=== PATIENT | male | born 1935 | race Two or more races ===

== ENCOUNTER 2022-08-09 03:32 | Inpatient (IN) | payer SELFPAY ==
[2022-08-09] MEDS ORDERED: Ondansetron PF 4 MG/2 ML Vial ONE (04:29)
[2022-08-09] MEDS ORDERED: Heparin 10,000 UNITS/ 10 ML VIAL ONE ×3 (04:30→06:01)
[2022-08-09] MEDS ORDERED: Metoprolol Tartrate 5 MG/5 ML VIAL ONE (04:30)
[2022-08-09 04:37] LABS: #Eosinphils 0.1 thou/uL (0.0-0.7); #Lymphocytes 0.7 thou/uL (1.20-3.40); #Monocytes 1.2 thou/uL (0.11-0.59); #Neutrophils 14.6 thou/uL (1.40-6.50); %Basophils 0.2 % (0.0-1.0); %Eosinophils 0.3 % (0.0-10.0); %Lymphocytes 3.9 % (21.0-51.0); %Monocytes 7.3 % (0.0-10.0); %Neutrophils 88.3 % (42.0-75.0); Hemoglobin 15.6 g/dL (14.0-18.0); Mean Corpuscular HGB CONC 33.7 g/dL (32.0-36.0); Mean Corpuscular Hemoglobin 31.7 pg (27.0-31.0); Mean Platelet Volume 7.5 fL (7.4-10.4); Platelet Count 227 10x3/uL (130-400); RBC Distribution Width 11.9 % (11.5-14.5); Red Blood Cell (RBC) Count 4.92 mill/uL (4.70-6.10); White Blood Cell (WBC) Count 16.6 10x3/uL (4.8-10.8)
[2022-08-09] MEDS ORDERED: Morphine 4 MG/ML VIAL ONE (04:38)
[2022-08-09] MEDS ORDERED: Nitroglycerin 50 MG/250 ML BOT 250 ML ONE (04:38)
[2022-08-09] MEDS ORDERED: Aspirin Chewable 81 MG TAB ONE (04:41)
[2022-08-09 05:02] LABS: ALT (SGPT) 12 U/L (8-55); AST (SGOT) 12 U/L (5-34); Albumin 4.4 g/dL (3.4-4.8); Alkaline Phosphatase 89 U/L (40-110); Anion Gap 14 mmol/L (10-20); BUN (Urea Nitrogen) 29 mg/dL (8.4-25.7); Bilirubin, Total 1.6 mg/dL (0.2-1.2); Calc. Creatinine Clearance 0 mL/min (70-130); Calcium 9.8 mg/dL (7.8-10.44); Carbon Dioxide 24 mmol/L (23-31); Chloride 98 mmol/L (98-107); Estimated GFR 37; Globulin 3.1 g/dL (2.4-3.5); Glucose 288 mg/dL (83-110); Lipase 21 U/L (8-78); Potassium 4.8 mmol/L (3.5-5.1); Protein, Total 7.5 g/dL (5.8-8.1); Sodium 131 mmol/L (136-145)
[2022-08-09] MEDS ORDERED: Lidocaine 1% (PF) 30 ML VIAL ONE (05:03)
[2022-08-09] MEDS ORDERED: Verapamil 5 MG/2 ML VIAL ONE (05:03)
[2022-08-09] MEDS ORDERED: Adenosine 6 MG/2 ML VIAL ONE (05:03)
[2022-08-09] MEDS ORDERED: Nitroglycerin 100MG/250ML BOT 250 ML ONE (05:03)
[2022-08-09 05:50] LABS: Cardiac Risk 5.4 (Less than 4.5)
[2022-08-09] MEDS ORDERED: Clopidogrel Bisulfate 300 MG TAB ONE ×2 (06:20)
[2022-08-09] MEDS ORDERED: Morphine 4 MG/ML VIAL SLOW IVP PRN (06:43)
[2022-08-09] MEDS ORDERED: Sodium Chloride 0.9% 1,000 ML IV SCH (06:45)
[2022-08-09] MEDS ORDERED: Colchicine 0.6 MG TAB PO SCH ×2 (07:00→09:30)
[2022-08-09] MEDS ORDERED: Iopamidol 370 76% 50 ML VIAL FS ONE (07:42)
[2022-08-09] MEDS ORDERED: Iopamidol 370 76% 100 ML VIAL ONE (07:42)
[2022-08-09 08:23] LABS: Troponin I Less than 0.010 ng/mL (< 0.028)
[2022-08-09] MEDS ORDERED: Dextrose 5% in Water 1,000 ML IV PRN (09:15)
[2022-08-09] MEDS ORDERED: HumaLOG 300 UNITS/3 ML VIAL SC PRN ×2 (09:15)
[2022-08-09] MEDS ORDERED: Dextrose 50% Abboject 50 ML SYRINGE IVP PRN (09:15)
[2022-08-09] MEDS ORDERED: Ondansetron PF 4 MG/2 ML Vial IVP PRN (09:23)
[2022-08-09] MEDS: Aspirin Chewable 81 MG TAB PO SCH (09:31)
[2022-08-09] MEDS: Carvedilol 3.125 MG TAB PO SCH ×2 (09:31→17:00)
[2022-08-09 13:04] LABS: Troponin I 0.018 ng/mL (< 0.028)
[2022-08-09] MEDS: Morphine 2 MG/ML VIAL SLOW IVP PRN (14:48)
[2022-08-09] MEDS ORDERED: Famotidine 20 MG TAB PO SCH (21:00)
[2022-08-09] MEDS ORDERED: Atorvastatin Calcium 40 MG TAB PO SCH (21:00)
[2022-08-09] MEDS ORDERED: Albuterol 2.5 MG/0.5 ML NEB ONE (21:33)
[2022-08-09] MEDS: Colchicine 0.6 MG TAB PO SCH (21:58)
[2022-08-10 02:31] LABS: #Lymphocytes 0.8 thou/uL (1.20-3.40); #Neutrophils 12.4 thou/uL (1.40-6.50); %Basophils 0.1 % (0.0-1.0); %Eosinophils 0.1 % (0.0-10.0); %Lymphocytes 5.8 % (21.0-51.0); %Monocytes 7.2 % (0.0-10.0); %Neutrophils 86.7 % (42.0-75.0); Hemoglobin 12.6 g/dL (14.0-18.0); Mean Corpuscular Hemoglobin 32.7 pg (27.0-31.0); Mean Corpuscular Volume 96.2 fl (78.0-98.0); Mean Platelet Volume 7.4 fL (7.4-10.4); Platelet Count 191 10x3/uL (130-400); RBC Distribution Width 12.2 % (11.5-14.5); Red Blood Cell (RBC) Count 3.84 mill/uL (4.70-6.10); White Blood Cell (WBC) Count 14.3 10x3/uL (4.8-10.8)
[2022-08-10 02:58] LABS: ALT (SGPT) 12 U/L (8-55); AST (SGOT) 10 U/L (5-34); Albumin 3.2 g/dL (3.4-4.8); Alkaline Phosphatase 58 U/L (40-110); Anion Gap 10 mmol/L (10-20); BUN (Urea Nitrogen) 29 mg/dL (8.4-25.7); Bilirubin, Total 1.8 mg/dL (0.2-1.2); Calc. Creatinine Clearance 34 mL/min (70-130); Calcium 8.5 mg/dL (7.8-10.44); Carbon Dioxide 25 mmol/L (23-31); Chloride 106 mmol/L (98-107); Estimated GFR 41; Globulin 2.9 g/dL (2.4-3.5); Glucose 215 mg/dL (83-110); Potassium 4.7 mmol/L (3.5-5.1); Protein, Total 6.1 g/dL (5.8-8.1); Sodium 136 mmol/L (136-145)
[2022-08-10] MEDS: Morphine 2 MG/ML VIAL SLOW IVP PRN (05:51)
[2022-08-10] MEDS ORDERED: Levothyroxine Sodium 75 MCG TAB PO SCH (06:00)
[2022-08-10 06:28] VITALS: BMI 27.8
[2022-08-10] MEDS: Aspirin Chewable 81 MG TAB PO SCH (08:12)
[2022-08-10] MEDS: Colchicine 0.6 MG TAB PO SCH (08:12)
[2022-08-10] MEDS: Carvedilol 3.125 MG TAB PO SCH (08:12)
[2022-08-10] MEDS ORDERED: Clopidogrel Bisulfate 75 MG TAB PO SCH (09:00)
[2022-08-10] MEDS ORDERED: Electrolyte Replacement Protocol 1 EACH FS SCH (09:00)
[2022-08-10] MEDS ORDERED: Carvedilol 3.125 MG TAB PO SCH (09:09)
[2022-08-10 13:32] VITALS: BP 117/50
[2022-08-10 16:40] VITALS: TEMP 98.5
[2022-08-10] MEDS ORDERED: Famotidine 20 MG TAB PO SCH (21:00)
== END 2022-08-10 17:20 | disposition home or self-care (01) | DRG 246 ==
LOC: ERS 03:32 → CCL 05:26 → CCU 07:04
PROVIDERS: ADMIT Internal Medicine Cardiovascular Disease; ATTEND Internal Medicine Cardiovascular Disease
PROC: 0T7D8ZZ Dilation of Urethra, Via Natural or Artificial Opening Endoscopic (ICD-10-PCS; principal; 2022-08-09)
PROC: 027034Z Dilation of Coronary Artery, One Artery with Drug-eluting Intraluminal Device, Percutaneous Approach (ICD-10-PCS; 2022-08-09)
PROC: 4A023N7 Measurement of Cardiac Sampling and Pressure, Left Heart, Percutaneous Approach (ICD-10-PCS; 2022-08-09)
PROC: B2151ZZ Fluoroscopy of Left Heart using Low Osmolar Contrast (ICD-10-PCS; 2022-08-09)
PROC: B2111ZZ Fluoroscopy of Multiple Coronary Arteries using Low Osmolar Contrast (ICD-10-PCS; 2022-08-09)
DX: I30.1 Infective pericarditis (principal); I21.3 ST elevation (STEMI) myocardial infarction of unspecified site; E87.1 Hypo-osmolality and hyponatremia; N17.9 Acute kidney failure, unspecified; N35.919 Unspecified urethral stricture, male, unspecified site; I25.10 Atherosclerotic heart disease of native coronary artery without angina pectoris; I10 Essential (primary) hypertension; E03.9 Hypothyroidism, unspecified; D72.829 Elevated white blood cell count, unspecified; E11.9 Type 2 diabetes mellitus without complications; N40.1 Benign prostatic hyperplasia with lower urinary tract symptoms; R33.8 Other retention of urine; R39.15 Urgency of urination; F32.A Depression, unspecified; J44.9 Chronic obstructive pulmonary disease, unspecified; E86.0 Dehydration; Z86.718 Personal history of other venous thrombosis and embolism; Z79.899 Other long term (current) drug therapy; Z79.890 Hormone replacement therapy; Z79.84 Long term (current) use of oral hypoglycemic drugs
CPT/HCPCS: 36415; 36416; 71045; 80053; 80061; 83690; 83880; 84443; 84484; 85025; 85347; 85379; 85652; 86140; 92941; 93005; 93010; 93306; 93454; 93798; 94640; 96374; 96375; C1769; C1874; C9606; J0153; J1644; J2001; J2270; J2272; J2405; J7050; Q9967

== ENCOUNTER 2022-09-20 13:33 | Outpatient (CLI) | payer OTHER | END 2022-09-20 13:34 | disposition home or self-care (01) | LOC: BICULT 13:33 | PROVIDERS: ATTEND Internal Medicine Cardiovascular Disease | DX: N18.4 Chronic kidney disease, stage 4 (severe) (principal); N28.1 Cyst of kidney, acquired | CPT/HCPCS: 76770 ==